=== PATIENT | male | born 1950 | race Caucasian/White ===

== ENCOUNTER 2022-03-13 10:52 | Inpatient (IN) | payer OTHER ==
[2022-03-13 16:07] LABS: #Lymphocytes 0.2 thou/uL (1.20-3.40); #Monocytes 0.1 thou/uL (0.11-0.59); %Basophils 0.2 % (0.0-1.0); %Eosinophils 0.5 % (0.0-10.0); %Lymphocytes 4.4 % (21.0-51.0); %Monocytes 1.9 % (0.0-10.0); Mean Corpuscular HGB CONC 32.6 g/dL (32.0-36.0); Mean Corpuscular Hemoglobin 32.5 pg (27.0-31.0); Mean Corpuscular Volume 99.7 fL (78.0-98.0); Mean Platelet Volume 7.4 fL (7.4-10.4); Platelet Count 181 thou/uL (130-400); RBC Distribution Width 13.1 % (11.5-14.5); White Blood Cell (WBC) Count 5.4 thou/uL (4.8-10.8)
[2022-03-13 16:35] LABS: ALT (SGPT) 16 U/L (8-55); AST (SGOT) 16 U/L (5-34); Albumin 3.9 g/dL (3.4-4.8); Alkaline Phosphatase 73 U/L (40-110); Anion Gap 15 mmol/L (10-20); BUN (Urea Nitrogen) 25 mg/dL (8.4-25.7); Bilirubin, Total 0.6 mg/dL (0.2-1.2); Calc. Creatinine Clearance 0 mL/min (70-130); Calcium 9.4 mg/dL (7.8-10.44); Carbon Dioxide 25 mmol/L (23-31); Chloride 105 mmol/L (98-107); Estimated GFR 82; Globulin 2.9 g/dL (2.4-3.5); Glucose 155 mg/dL (80-115); Potassium 3.9 mmol/L (3.5-5.1); Protein, Total 6.8 g/dL (5.8-8.1); Sodium 141 mmol/L (136-145)
[2022-03-13] MEDS ORDERED: hydrALAZINE 20 MG/ML VIAL ONE (20:57)
[2022-03-13 21:44] LABS: SARS-CoV-2 NAA Rapid Test Not Detected (NotDetected)
[2022-03-14 00:09] VITALS: BMI 14.5
[2022-03-14] MEDS ORDERED: Ondansetron PF 4 MG/2 ML Vial IVP PRN (01:10)
[2022-03-14] MEDS: methylPREDNISolone Sod Succ 40 MG VIAL IVP SCH ×3 (05:06→17:45)
[2022-03-14 06:23] LABS: #Eosinphils 0.1 thou/uL (0.0-0.7); #Lymphocytes 0.6 thou/uL (1.20-3.40); #Monocytes 0.6 thou/uL (0.11-0.59); %Basophils 0.1 % (0.0-1.0); %Eosinophils 0.7 % (0.0-10.0); %Lymphocytes 8.7 % (21.0-51.0); %Monocytes 8.2 % (0.0-10.0); %Neutrophils 82.3 % (42.0-75.0); Hemoglobin 12.1 g/dL (14.0-18.0); Mean Corpuscular HGB CONC 33.2 g/dL (32.0-36.0); Mean Corpuscular Hemoglobin 33.1 pg (27.0-31.0); Mean Corpuscular Volume 99.5 fL (78.0-98.0); Mean Platelet Volume 6.9 fL (7.4-10.4); Platelet Count 163 thou/uL (130-400); RBC Distribution Width 12.9 % (11.5-14.5); Red Blood Cell (RBC) Count 3.67 mill/uL (4.70-6.10); White Blood Cell (WBC) Count 7.3 thou/uL (4.8-10.8)
[2022-03-14] MEDS: Mometasone 200 MCG/Formoterol 5 MCG 120 PUFF INHALER INH SCH ×2 (06:23→18:20)
[2022-03-14] MEDS ORDERED: Mometasone/Formoterol 200/5 60 PUFF INH SCH (06:30)
[2022-03-14 06:39] LABS: Anion Gap 11 mmol/L (10-20); BUN (Urea Nitrogen) 27 mg/dL (8.4-25.7); Calc. Creatinine Clearance 51 mL/min (70-130); Carbon Dioxide 29 mmol/L (23-31); Chloride 105 mmol/L (98-107); Estimated GFR 96; Glucose 107 mg/dL (80-115); Potassium 3.8 mmol/L (3.5-5.1); Sodium 141 mmol/L (136-145)
[2022-03-14] MEDS: Ferrous Sulfate 325 MG TAB PO SCH ×2 (08:10→20:28)
[2022-03-14] MEDS: Amlodipine 5 MG TAB PO SCH (08:10)
[2022-03-14] MEDS: Losartan 25 MG TAB PO SCH (08:10)
[2022-03-14] MEDS: Enoxaparin Sodium 30 MG/0.3 ML SYRINGE SC SCH (08:10)
[2022-03-14] MEDS: guaiFENesin/DM ER PO SCH ×2 (09:19→20:28)
[2022-03-14] MEDS ORDERED: Acetylcysteine 20% 200 MG/ML 30 ML VIAL INH SCH (17:45)
[2022-03-14] MEDS: Acetylcysteine 20% 200 MG/ML 30 ML VIAL INH SCH (18:16)
[2022-03-14] MEDS ORDERED: hydrALAZINE 20 MG/ML VIAL SLOW IVP PRN (18:43)
[2022-03-14] MEDS: Mirtazapine 15 MG Soltab PO SCH (20:27)
[2022-03-15] MEDS: methylPREDNISolone Sod Succ 40 MG VIAL IVP SCH ×5 (00:47→23:39)
[2022-03-15] MEDS: Acetylcysteine 20% 200 MG/ML 30 ML VIAL INH SCH ×4 (01:39→18:13)
[2022-03-15 05:51] LABS: #Lymphocytes 0.2 thou/uL (1.20-3.40); #Monocytes 0.2 thou/uL (0.11-0.59); #Neutrophils 7.6 thou/uL (1.40-6.50); %Eosinophils 0.2 % (0.0-10.0); %Lymphocytes 1.9 % (21.0-51.0); %Monocytes 2.1 % (0.0-10.0); %Neutrophils 95.8 % (42.0-75.0); Mean Corpuscular Hemoglobin 32.9 pg (27.0-31.0); Mean Corpuscular Volume 99.6 fL (78.0-98.0); Platelet Count 164 thou/uL (130-400); RBC Distribution Width 12.9 % (11.5-14.5); Red Blood Cell (RBC) Count 3.95 mill/uL (4.70-6.10); White Blood Cell (WBC) Count 7.9 thou/uL (4.8-10.8)
[2022-03-15 06:08] LABS: Anion Gap 12 mmol/L (10-20); BUN (Urea Nitrogen) 26 mg/dL (8.4-25.7); Calc. Creatinine Clearance 42 mL/min (70-130); Calcium 9.4 mg/dL (7.8-10.44); Carbon Dioxide 29 mmol/L (23-31); Chloride 105 mmol/L (98-107); Estimated GFR 87; Glucose 154 mg/dL (80-115); Potassium 3.9 mmol/L (3.5-5.1); Sodium 142 mmol/L (136-145)
[2022-03-15] MEDS: Mometasone 200 MCG/Formoterol 5 MCG 120 PUFF INHALER INH SCH ×2 (07:39→18:15)
[2022-03-15] MEDS: Enoxaparin Sodium 30 MG/0.3 ML SYRINGE SC SCH (09:54)
[2022-03-15] MEDS: Amlodipine 5 MG TAB PO SCH (09:55)
[2022-03-15] MEDS: Losartan 25 MG TAB PO SCH (09:55)
[2022-03-15] MEDS: Ferrous Sulfate 325 MG TAB PO SCH ×2 (09:59→21:58)
[2022-03-15] MEDS: guaiFENesin/DM ER PO SCH ×2 (09:59→21:59)
[2022-03-15] MEDS ORDERED: guaiFENesin ER 600 MG TAB PO SCH (13:54)
[2022-03-15] MEDS ORDERED: Scopolamine 1.5 mg/72 hour Patch TD SCH (14:00)
[2022-03-15] MEDS: Mirtazapine 15 MG Soltab PO SCH (21:59)
[2022-03-16] MEDS: Acetylcysteine 20% 200 MG/ML 30 ML VIAL INH SCH ×2 (01:44→07:10)
[2022-03-16 06:01] LABS: #Basophils 0.1 thou/uL (0.0-0.2); #Lymphocytes 0.2 thou/uL (1.20-3.40); #Monocytes 0.2 thou/uL (0.11-0.59); #Neutrophils 7.3 thou/uL (1.40-6.50); %Basophils 0.8 % (0.0-1.0); %Eosinophils 0.4 % (0.0-10.0); %Lymphocytes 1.9 % (21.0-51.0); %Neutrophils 93.8 % (42.0-75.0); Hemoglobin 12.4 g/dL (14.0-18.0); Mean Corpuscular HGB CONC 33.3 g/dL (32.0-36.0); Mean Corpuscular Hemoglobin 33.6 pg (27.0-31.0); Mean Platelet Volume 7.2 fL (7.4-10.4); Platelet Count 159 thou/uL (130-400); Red Blood Cell (RBC) Count 3.69 mill/uL (4.70-6.10); White Blood Cell (WBC) Count 7.8 thou/uL (4.8-10.8)
[2022-03-16] MEDS: methylPREDNISolone Sod Succ 40 MG VIAL IVP SCH ×2 (06:02→11:47)
[2022-03-16 06:26] LABS: Anion Gap 11 mmol/L (10-20); BUN (Urea Nitrogen) 30 mg/dL (8.4-25.7); Calc. Creatinine Clearance 34 mL/min (70-130); Calcium 9.1 mg/dL (7.8-10.44); Carbon Dioxide 31 mmol/L (23-31); Chloride 104 mmol/L (98-107); Estimated GFR 67; Glucose 170 mg/dL (80-115); Potassium 3.8 mmol/L (3.5-5.1); Sodium 142 mmol/L (136-145)
[2022-03-16] MEDS: Mometasone 200 MCG/Formoterol 5 MCG 120 PUFF INHALER INH SCH (07:10)
[2022-03-16] MEDS: Ferrous Sulfate 325 MG TAB PO SCH (09:49)
[2022-03-16] MEDS: Enoxaparin Sodium 30 MG/0.3 ML SYRINGE SC SCH (09:49)
[2022-03-16] MEDS: Losartan 25 MG TAB PO SCH (10:54)
[2022-03-16] MEDS: Amlodipine 5 MG TAB PO SCH (10:55)
[2022-03-16] MEDS: guaiFENesin/DM ER PO SCH (10:55)
[2022-03-16 12:22] VITALS: BP 185/98; TEMP 98
== END 2022-03-16 13:52 | disposition home health service (06) | DRG 189 ==
LOC: ERS 10:52 → T4-B 21:05 → OBSVTOIN 03-14 09:24
PROVIDERS: ADMIT Internal Medicine; ATTEND Internal Medicine
PROC: 5A09357 Assistance with Respiratory Ventilation, Less than 24 Consecutive Hours, Continuous Positive Airway Pressure (ICD-10-PCS; principal; 2022-03-14)
DX: J96.21 Acute and chronic respiratory failure with hypoxia (principal); E43 Unspecified severe protein-calorie malnutrition; Z68.1 Body mass index [BMI] 19.9 or less, adult; J44.1 Chronic obstructive pulmonary disease with (acute) exacerbation; Z20.822 Contact with and (suspected) exposure to COVID-19; I10 Essential (primary) hypertension; F43.10 Post-traumatic stress disorder, unspecified; Z91.81 History of falling; Z85.038 Personal history of other malignant neoplasm of large intestine; Z92.21 Personal history of antineoplastic chemotherapy; Z79.899 Other long term (current) drug therapy; Z79.52 Long term (current) use of systemic steroids; Z90.49 Acquired absence of other specified parts of digestive tract; Z82.49 Family history of ischemic heart disease and other diseases of the circulatory system; Z80.8 Family history of malignant neoplasm of other organs or systems; Z87.891 Personal history of nicotine dependence; Z99.81 Dependence on supplemental oxygen; Z59.00 Homelessness unspecified
CPT/HCPCS: 36415; 71045; 80048; 80053; 83605; 83880; 84484; 85025; 93005; 94640; 96372; 96374; 96375; G0378; J0132; J0360; J1650; J1956; J2920; J7620

== ENCOUNTER 2022-03-18 00:38 | Inpatient (IN) | payer OTHER ==
[2022-03-18 06:02] LABS: #Eosinphils 0.1 thou/uL (0.0-0.7); #Lymphocytes 0.6 thou/uL (1.20-3.40); #Monocytes 0.6 thou/uL (0.11-0.59); #Neutrophils 7.3 thou/uL (1.40-6.50); %Basophils 0.3 % (0.0-1.0); %Monocytes 6.4 % (0.0-10.0); %Neutrophils 85.3 % (42.0-75.0); Hemoglobin 13.2 g/dL (14.0-18.0); Mean Corpuscular Hemoglobin 33.3 pg (27.0-31.0); Mean Platelet Volume 7.4 fL (7.4-10.4); Platelet Count 151 thou/uL (130-400); RBC Distribution Width 13.1 % (11.5-14.5); Red Blood Cell (RBC) Count 3.97 mill/uL (4.70-6.10); White Blood Cell (WBC) Count 8.5 thou/uL (4.8-10.8)
[2022-03-18 06:23] LABS: ALT (SGPT) 62 U/L (8-55); AST (SGOT) 22 U/L (5-34); Albumin 3.4 g/dL (3.4-4.8); Alkaline Phosphatase 69 U/L (40-110); Anion Gap 14 mmol/L (10-20); BUN (Urea Nitrogen) 33 mg/dL (8.4-25.7); Bilirubin, Total 0.9 mg/dL (0.2-1.2); Calc. Creatinine Clearance 0 mL/min (70-130); Calcium 9.1 mg/dL (7.8-10.44); Carbon Dioxide 30 mmol/L (23-31); Chloride 103 mmol/L (98-107); Estimated GFR 92; Globulin 2.6 g/dL (2.4-3.5); Glucose 107 mg/dL (80-115); Potassium 4.1 mmol/L (3.5-5.1); Sodium 143 mmol/L (136-145)
[2022-03-18] MEDS ORDERED: Morphine 4 MG/ML VIAL SLOW IVP PRN (06:30)
[2022-03-18] MEDS ORDERED: Dextrose 50% Abboject 50 ML SYRINGE SLOW IVP PRN (06:30)
[2022-03-18] MEDS ORDERED: Ondansetron ODT 4 MG TAB PO PRN (06:30)
[2022-03-18] MEDS ORDERED: Morphine 2 MG/ML VIAL SLOW IVP PRN ×2 (06:30→07:39)
[2022-03-18] MEDS ORDERED: TETANUS AND DIPHTHERIA TOX/PF 0.5 ML DISP.SYRIN IM ONE (06:30)
[2022-03-18] MEDS ORDERED: Ondansetron PF 4 MG/2 ML Vial IVP PRN (06:30)
[2022-03-18] MEDS ORDERED: hydrALAZINE 20 MG/ML VIAL SLOW IVP PRN (06:30)
[2022-03-18] MEDS ORDERED: Sodium Chloride 0.9% 1,000 ML IV SCH (06:30)
[2022-03-18] MEDS ORDERED: Dextrose 5% in Water 1,000 ML IV PRN (06:30)
[2022-03-18] MEDS ORDERED: Cyclobenzaprine 10 MG TAB PO PRN (06:35)
[2022-03-18] MEDS ORDERED: Ibuprofen 200 MG TAB PO PRN (06:35)
[2022-03-18 07:00] LABS: Magnesium 2.3 mg/dL (1.6-2.6); Phosphorus 2.6 mg/dL (2.3-4.7)
[2022-03-18] MEDS ORDERED: HYDROcodone/Acetaminophen 5/325 mg Tablet ONE (08:04)
[2022-03-18] MEDS: Famotidine 20 MG TAB PO SCH (11:01)
[2022-03-18] MEDS: Acetaminophen 325 MG TAB PO SCH ×3 (11:01→21:38)
[2022-03-18] MEDS: predniSONE 50 MG TAB PO SCH (11:01)
[2022-03-18 11:20] LABS: Bilirubin Negative (Negative); Blood, Urine Negative (Negative); Clarity Clear (Clear); Glucose, Urine (Dipstick) Normal (Negative); Ketone, Urine Negative (Negative); Leukocyte Negative Leu/uL (Negative); Nitrite Negative (Negative); Protein, Urine (Dipstick) Negative (Neg-Trace); Specific Gravity, Urine 1.021 (1.002-1.036); Urobilinogen Normal mg/dL (Less than 2)
[2022-03-18 11:36] VITALS: BMI 16.7
[2022-03-18] MEDS: traMADol HCl 50 MG TAB PO PRN ×2 (11:42→21:38)
[2022-03-18] MEDS ORDERED: Albuterol Sulfate 2.5 mg/3 ml Neb NEB PRN (20:04)
[2022-03-18] MEDS: Ferrous Sulfate 325 MG TAB PO SCH (21:39)
[2022-03-18] MEDS: guaiFENesin/DM ER PO SCH (21:39)
[2022-03-18] MEDS: Mirtazapine 15 MG Soltab PO SCH (21:45)
[2022-03-19] MEDS: Acetaminophen 325 MG TAB PO SCH ×4 (03:17→21:41)
[2022-03-19] MEDS: traMADol HCl 50 MG TAB PO PRN (03:18)
[2022-03-19 05:50] LABS: #Eosinphils 0.2 thou/uL (0.0-0.7); #Lymphocytes 0.6 thou/uL (1.20-3.40); #Monocytes 0.7 thou/uL (0.11-0.59); #Neutrophils 6.3 thou/uL (1.40-6.50); %Eosinophils 2.7 % (0.0-10.0); %Lymphocytes 7.2 % (21.0-51.0); %Monocytes 8.6 % (0.0-10.0); %Neutrophils 81.5 % (42.0-75.0); Hemoglobin 12.2 g/dL (14.0-18.0); Mean Corpuscular HGB CONC 32.7 g/dL (32.0-36.0); Mean Corpuscular Hemoglobin 33.1 pg (27.0-31.0); Mean Platelet Volume 7.2 fL (7.4-10.4); Platelet Count 137 thou/uL (130-400); RBC Distribution Width 12.7 % (11.5-14.5); Red Blood Cell (RBC) Count 3.68 mill/uL (4.70-6.10); White Blood Cell (WBC) Count 7.7 thou/uL (4.8-10.8)
[2022-03-19] MEDS ORDERED: Mometasone/Formoterol 200/5 60 PUFF INH SCH (06:30)
[2022-03-19] MEDS: Mometasone 200 MCG/Formoterol 5 MCG 120 PUFF INHALER INH SCH ×2 (07:09→20:22)
[2022-03-19] MEDS: Polyethylene Glycol 3350 17 GM Packet PO SCH (10:00)
[2022-03-19] MEDS: guaiFENesin/DM ER PO SCH ×2 (10:01→21:40)
[2022-03-19] MEDS: Losartan 25 MG TAB PO SCH (10:01)
[2022-03-19] MEDS: Senokot S 8.6-50 MG TAB PO SCH ×2 (10:01→21:41)
[2022-03-19] MEDS: predniSONE 50 MG TAB PO SCH (10:02)
[2022-03-19] MEDS: Enoxaparin Sodium 40 MG/0.4 ML SYRINGE SC SCH (10:02)
[2022-03-19] MEDS: Amlodipine 5 MG TAB PO SCH (10:02)
[2022-03-19] MEDS: Ferrous Sulfate 325 MG TAB PO SCH ×2 (10:02→21:42)
[2022-03-19] MEDS: Famotidine 20 MG TAB PO SCH (10:02)
[2022-03-19] MEDS: Mirtazapine 15 MG Soltab PO SCH (21:41)
[2022-03-20] MEDS: Acetaminophen 325 MG TAB PO SCH ×4 (02:19→20:46)
[2022-03-20] MEDS: Mometasone 200 MCG/Formoterol 5 MCG 120 PUFF INHALER INH SCH ×2 (07:25→18:30)
[2022-03-20] MEDS: Amlodipine 5 MG TAB PO SCH (08:12)
[2022-03-20] MEDS: Senokot S 8.6-50 MG TAB PO SCH ×2 (08:13→20:47)
[2022-03-20] MEDS: Losartan 25 MG TAB PO SCH (08:13)
[2022-03-20] MEDS: guaiFENesin/DM ER PO SCH ×2 (08:13→20:47)
[2022-03-20] MEDS: Famotidine 20 MG TAB PO SCH (08:15)
[2022-03-20] MEDS: Ferrous Sulfate 325 MG TAB PO SCH ×2 (08:16→20:47)
[2022-03-20] MEDS: Enoxaparin Sodium 40 MG/0.4 ML SYRINGE SC SCH (08:16)
[2022-03-20] MEDS: predniSONE 50 MG TAB PO SCH (08:16)
[2022-03-20] MEDS: Polyethylene Glycol 3350 17 GM Packet PO SCH (08:17)
[2022-03-20] MEDS ORDERED: Amlodipine 5 MG TAB PO SCH (11:29)
[2022-03-20] MEDS: traMADol HCl 50 MG TAB PO PRN (14:51)
[2022-03-20] MEDS: Mirtazapine 15 MG Soltab PO SCH (20:47)
[2022-03-21] MEDS: Acetaminophen 325 MG TAB PO SCH ×4 (02:38→21:00)
[2022-03-21] MEDS: Mometasone 200 MCG/Formoterol 5 MCG 120 PUFF INHALER INH SCH ×2 (06:48→19:05)
[2022-03-21] MEDS: Losartan 25 MG TAB PO SCH (10:29)
[2022-03-21] MEDS: predniSONE 50 MG TAB PO SCH (10:30)
[2022-03-21] MEDS: guaiFENesin/DM ER PO SCH ×2 (10:30→21:01)
[2022-03-21] MEDS: Amlodipine 5 MG TAB PO SCH (10:30)
[2022-03-21] MEDS: Famotidine 20 MG TAB PO SCH (10:30)
[2022-03-21] MEDS: Polyethylene Glycol 3350 17 GM Packet PO SCH (11:34)
[2022-03-21] MEDS: Ferrous Sulfate 325 MG TAB PO SCH ×2 (11:34→21:00)
[2022-03-21] MEDS: Enoxaparin Sodium 40 MG/0.4 ML SYRINGE SC SCH (11:34)
[2022-03-21] MEDS: Senokot S 8.6-50 MG TAB PO SCH ×2 (11:35→21:01)
[2022-03-21] MEDS: Mirtazapine 15 MG Soltab PO SCH (21:32)
[2022-03-22] MEDS: Acetaminophen 325 MG TAB PO SCH ×3 (01:44→13:21)
[2022-03-22] MEDS: Mometasone 200 MCG/Formoterol 5 MCG 120 PUFF INHALER INH SCH (07:16)
[2022-03-22] MEDS: Losartan 25 MG TAB PO SCH (08:19)
[2022-03-22] MEDS: Amlodipine 5 MG TAB PO SCH (08:19)
[2022-03-22] MEDS: predniSONE 50 MG TAB PO SCH (08:19)
[2022-03-22] MEDS: Senokot S 8.6-50 MG TAB PO SCH (08:19)
[2022-03-22] MEDS: guaiFENesin/DM ER PO SCH (08:19)
[2022-03-22] MEDS: Enoxaparin Sodium 40 MG/0.4 ML SYRINGE SC SCH (08:20)
[2022-03-22] MEDS: Ferrous Sulfate 325 MG TAB PO SCH (08:20)
[2022-03-22] MEDS: Polyethylene Glycol 3350 17 GM Packet PO SCH (08:20)
[2022-03-22] MEDS: Famotidine 20 MG TAB PO SCH (08:20)
[2022-03-22 12:53] VITALS: BP 174/87; TEMP 98.8
== END 2022-03-22 14:22 | DRG 535 ==
LOC: ERS 00:38 → SURG A 06:17
PROVIDERS: ADMIT Student in an Organized Health Care Education/Training Program; ATTEND Surgery
DX: S72.114A Nondisplaced fracture of greater trochanter of right femur, initial encounter for closed fracture (principal); E43 Unspecified severe protein-calorie malnutrition; Z68.1 Body mass index [BMI] 19.9 or less, adult; Z20.822 Contact with and (suspected) exposure to COVID-19; J44.9 Chronic obstructive pulmonary disease, unspecified; K21.9 Gastro-esophageal reflux disease without esophagitis; I10 Essential (primary) hypertension; E78.5 Hyperlipidemia, unspecified; F43.10 Post-traumatic stress disorder, unspecified; W19.XXXA Unspecified fall, initial encounter; Z99.81 Dependence on supplemental oxygen; Z90.49 Acquired absence of other specified parts of digestive tract; Z85.038 Personal history of other malignant neoplasm of large intestine; Z79.51 Long term (current) use of inhaled steroids; Z79.52 Long term (current) use of systemic steroids; Z79.899 Other long term (current) drug therapy; Z87.891 Personal history of nicotine dependence
CPT/HCPCS: 36415; 71045; 72192; 80053; 81003; 83735; 84100; 85025; 93005; 94640; 97139; G0390; J7512; J7620; U0003; U0005

== ENCOUNTER 2022-04-02 13:19 | Emergency (ER) | payer OTHER ==
[2022-04-02 14:29] LABS: Hemoglobin 13.2 g/dL (14.0-18.0); Red Blood Cell (RBC) Count 4.09 mill/uL (4.70-6.10); White Blood Cell (WBC) Count 5.9 thou/uL (4.8-10.8)
[2022-04-02 14:30] LABS: #Eosinphils 0.1 thou/uL (0.0-0.7); #Lymphocytes 0.4 thou/uL (1.20-3.40); #Monocytes 0.4 thou/uL (0.11-0.59); %Eosinophils 1.5 % (0.0-10.0); %Lymphocytes 6.1 % (21.0-51.0); %Neutrophils 85.4 % (42.0-75.0); Mean Corpuscular HGB CONC 32.3 g/dL (32.0-36.0); Mean Corpuscular Hemoglobin 32.2 pg (27.0-31.0); Mean Corpuscular Volume 99.8 fL (78.0-98.0); Mean Platelet Volume 6.6 fL (7.4-10.4); Platelet Count 179 thou/uL (130-400); RBC Distribution Width 13.3 % (11.5-14.5)
[2022-04-02 15:14] LABS: ALT (SGPT) 27 U/L (8-55); AST (SGOT) 16 U/L (5-34); Albumin 3.6 g/dL (3.4-4.8); Alkaline Phosphatase 125 U/L (40-110); Anion Gap 16 mmol/L (10-20); BUN (Urea Nitrogen) 20 mg/dL (8.4-25.7); Bilirubin, Total 0.8 mg/dL (0.2-1.2); Calc. Creatinine Clearance 0 mL/min (70-130); Calcium 9.4 mg/dL (7.8-10.44); Carbon Dioxide 28 mmol/L (23-31); Chloride 104 mmol/L (98-107); Estimated GFR 82; Globulin 2.8 g/dL (2.4-3.5); Glucose 169 mg/dL (80-115); Potassium 3.8 mmol/L (3.5-5.1); Protein, Total 6.4 g/dL (5.8-8.1); Sodium 144 mmol/L (136-145)
[2022-04-02] MEDS ORDERED: Morphine 4 MG/ML VIAL ONE (15:15)
== END 2022-04-02 18:49 | disposition home or self-care (01) ==
LOC: ERS 13:19
DX: S60.229A Contusion of unspecified hand, initial encounter (principal); I10 Essential (primary) hypertension; J44.9 Chronic obstructive pulmonary disease, unspecified; W18.39XA Other fall on same level, initial encounter; E78.5 Hyperlipidemia, unspecified
CPT/HCPCS: 36415; 72170; 80053; 85025; 96372; J2270

== ENCOUNTER 2022-04-05 10:38 | Emergency (ER) | payer MEDICARE, OTHER ==
[2022-04-05] MEDS ORDERED: Magnesium 2 GM/50 ML BAG (IN WATER) ONE (12:01)
[2022-04-05] MEDS ORDERED: methylPREDNISolone Sod Succ/PF 125 MG/2 ML VIAL ONE (12:01)
[2022-04-05 12:32] LABS: #Eosinphils 0.2 thou/uL (0.0-0.7); #Lymphocytes 0.4 thou/uL (1.20-3.40); #Monocytes 0.3 thou/uL (0.11-0.59); #Neutrophils 3.5 thou/uL (1.40-6.50); %Basophils 0.6 % (0.0-1.0); %Eosinophils 3.6 % (0.0-10.0); %Lymphocytes 8.8 % (21.0-51.0); %Monocytes 6.4 % (0.0-10.0); %Neutrophils 80.7 % (42.0-75.0); Hemoglobin 13.5 g/dL (14.0-18.0); Mean Corpuscular HGB CONC 32.9 g/dL (32.0-36.0); Mean Platelet Volume 6.6 fL (7.4-10.4); Platelet Count 200 thou/uL (130-400); RBC Distribution Width 13.1 % (11.5-14.5); White Blood Cell (WBC) Count 4.3 thou/uL (4.8-10.8)
[2022-04-05 12:59] LABS: ALT (SGPT) 20 U/L (8-55); AST (SGOT) 14 U/L (5-34); Albumin 3.9 g/dL (3.4-4.8); Alkaline Phosphatase 132 U/L (40-110); Anion Gap 14 mmol/L (10-20); BUN (Urea Nitrogen) 16 mg/dL (8.4-25.7); Bilirubin, Total 0.8 mg/dL (0.2-1.2); Calc. Creatinine Clearance 0 mL/min (70-130); Calcium 9.5 mg/dL (7.8-10.44); Carbon Dioxide 31 mmol/L (23-31); Chloride 102 mmol/L (98-107); Estimated GFR 79; Globulin 2.9 g/dL (2.4-3.5); Glucose 138 mg/dL (80-115); Magnesium 1.9 mg/dL (1.6-2.6); Potassium 3.5 mmol/L (3.5-5.1); Protein, Total 6.8 g/dL (5.8-8.1); Sodium 143 mmol/L (136-145)
== END 2022-04-05 14:36 | disposition home or self-care (01) ==
LOC: EEVIPCON 10:38 → ERS 10:38
DX: J44.1 Chronic obstructive pulmonary disease with (acute) exacerbation (principal); I10 Essential (primary) hypertension
CPT/HCPCS: 71045; 80053; 83735; 83880; 84484; 85025; 93005; 96365; 96375; J2930; J3475; J7620

== ENCOUNTER 2022-09-28 18:54 | Inpatient (IN) | payer MEDICARE, OTHER ==
[2022-09-28] MEDS ORDERED: methylPREDNISolone Sod Succ/PF 125 MG/2 ML VIAL ONE (19:05)
[2022-09-28] MEDS ORDERED: Ipratropium/Albuterol 3 ML NEB ONE (19:08)
[2022-09-28] MEDS ORDERED: Cefepime 2 GM VIAL ONE (19:32)
[2022-09-28 19:38] LABS: #Eosinphils 0.1 thou/uL (0.0-0.7); #Lymphocytes 0.6 thou/uL (1.20-3.40); #Monocytes 0.4 thou/uL (0.11-0.59); #Neutrophils 4.2 thou/uL (1.40-6.50); %Basophils 0.2 % (0.0-1.0); %Eosinophils 2.2 % (0.0-10.0); %Lymphocytes 11.9 % (21.0-51.0); %Monocytes 7.1 % (0.0-10.0); %Neutrophils 78.6 % (42.0-75.0); Hemoglobin 14.4 g/dL (14.0-18.0); Mean Corpuscular HGB CONC 33.6 g/dL (32.0-36.0); Mean Corpuscular Hemoglobin 33.2 pg (27.0-31.0); Mean Corpuscular Volume 98.8 fl (78.0-98.0); Platelet Count 203 10x3/uL (130-400); RBC Distribution Width 13.6 % (11.5-14.5); Red Blood Cell (RBC) Count 4.34 mill/uL (4.70-6.10); White Blood Cell (WBC) Count 5.3 10x3/uL (4.8-10.8)
[2022-09-28 20:09] LABS: Actual Bicarbonate (HCO3v) 33 mEq/L (22-28); Base Excess 4.4 mEq/L (-2.0 to +3.0); Calcium, Ionized (venous) 1.17 mmol/L (1.16-1.32); Chloride (VBG) 102 mmol/L (98-106); Hemoglobin (Hb) 14.4 g/dL (12.6-17.4); Sodium 144.6 mmol/L (133-146); pH (venous) 7.31 (7.32-7.43)
[2022-09-28] MEDS ORDERED: Albuterol 2.5 MG/0.5 ML NEB ONE (20:23)
[2022-09-28 20:26] LABS: Albumin 4.2 g/dL (3.4-4.8)
[2022-09-28 20:27] LABS: Chloride 103 mmol/L (98-107); Potassium 3.7 mmol/L (3.5-5.1); Sodium 145 mmol/L (136-145)
[2022-09-28 20:28] LABS: Calcium 9.6 mg/dL (7.8-10.44); Glucose 100 mg/dL (83-110)
[2022-09-28 20:29] LABS: Globulin 2.7 g/dL (2.4-3.5); Protein, Total 6.9 g/dL (5.8-8.1)
[2022-09-28 20:30] LABS: Anion Gap 17 mmol/L (10-20); Bilirubin, Total 0.4 mg/dL (0.2-1.2); Carbon Dioxide 29 mmol/L (23-31)
[2022-09-28 20:31] LABS: Alkaline Phosphatase 96 U/L (40-110)
[2022-09-28 20:32] LABS: Calc. Creatinine Clearance 0 mL/min (70-130); Estimated GFR 77
[2022-09-28 20:33] LABS: BUN (Urea Nitrogen) 21 mg/dL (8.4-25.7)
[2022-09-28 20:34] LABS: ALT (SGPT) 16 U/L (8-55); AST (SGOT) 17 U/L (5-34)
[2022-09-28] MEDS ORDERED: Ondansetron PF 4 MG/2 ML Vial IVP PRN (21:16)
[2022-09-28] MEDS ORDERED: Ipratropium/Albuterol 3 ML NEB EZPAP PRN (21:21)
[2022-09-28 21:29] LABS: SARS-CoV-2 NAA Rapid Test Not Detected (NotDetected)
[2022-09-28] MEDS: Ipratropium/Albuterol 3 ML NEB NEB SCH (22:53)
[2022-09-28 22:57] VITALS: BMI 15.4
[2022-09-28 23:13] LABS: Lactic Acid 3.6 mmol/L (0.5-2.2)
[2022-09-29] MEDS: Acetaminophen 325 MG TAB PO PRN ×2 (02:27→20:50)
[2022-09-29] MEDS: Ipratropium/Albuterol 3 ML NEB NEB SCH ×6 (02:36→22:21)
[2022-09-29 03:51] LABS: Amphetamine Not Detected (NotDetected); Barbiturates Screen Not Detected (NotDetected); Benzodiazepine Screen Not Detected (NotDetected); Cocaine Metabolite Screen Detected (NotDetected); Methadone Not Detected (NotDetected); Methamphetamine Not Detected (NotDetected); Opiate Screen Detected (NotDetected); Oxycodone Screen Not Detected (NotDetected); Phencyclidine (PCP) Not Detected (NotDetected); THC/Cannabinoid Screen Not Detected (NotDetected); Tricyclic Screen Not Detected (NotDetected)
[2022-09-29] MEDS: methylPREDNISolone Sod Succ/PF 125 MG/2 ML VIAL IVP SCH ×4 (05:18→23:49)
[2022-09-29] MEDS: Benzonatate 100 MG CAP PO PRN ×2 (05:19→20:50)
[2022-09-29 06:45] LABS: #Lymphocytes 0.2 thou/uL (1.20-3.40); #Monocytes 0.1 thou/uL (0.11-0.59); #Neutrophils 3.2 thou/uL (1.40-6.50); %Eosinophils 0.3 % (0.0-10.0); %Monocytes 1.6 % (0.0-10.0); %Neutrophils 93.2 % (42.0-75.0); Hemoglobin 11.3 g/dL (14.0-18.0); Mean Corpuscular HGB CONC 33.1 g/dL (32.0-36.0); Mean Corpuscular Hemoglobin 32.6 pg (27.0-31.0); Mean Corpuscular Volume 98.4 fl (78.0-98.0); Mean Platelet Volume 7.4 fL (7.4-10.4); Platelet Count 148 10x3/uL (130-400); RBC Distribution Width 13.4 % (11.5-14.5); Red Blood Cell (RBC) Count 3.46 mill/uL (4.70-6.10); White Blood Cell (WBC) Count 3.4 10x3/uL (4.8-10.8)
[2022-09-29 06:55] LABS: Anion Gap 12 mmol/L (10-20); BUN (Urea Nitrogen) 21 mg/dL (8.4-25.7); Calc. Creatinine Clearance 43 mL/min (70-130); Carbon Dioxide 27 mmol/L (23-31); Chloride 106 mmol/L (98-107); Estimated GFR 78; Glucose 160 mg/dL (83-110); Potassium 4.4 mmol/L (3.5-5.1); Sodium 141 mmol/L (136-145)
[2022-09-29] MEDS: Mometasone 200 MCG/Formoterol 5 MCG 120 PUFF INHALER INH SCH ×2 (07:44→18:46)
[2022-09-29] MEDS ORDERED: Losartan 25 MG TAB PO SCH (12:45)
[2022-09-29] MEDS ORDERED: Amlodipine 5 MG TAB PO SCH (12:45)
[2022-09-29] MEDS ORDERED: Mometasone 200 MCG/Formoterol 5 MCG 120 PUFF INHALER INH SCH (21:00)
[2022-09-29] MEDS ORDERED: hydrOXYzine 10 MG TAB PO SCH (23:30)
[2022-09-30] MEDS: Ipratropium/Albuterol 3 ML NEB NEB SCH ×6 (01:55→22:16)
[2022-09-30 05:34] LABS: #Lymphocytes 0.2 thou/uL (1.20-3.40); #Monocytes 0.1 thou/uL (0.11-0.59); #Neutrophils 7.2 thou/uL (1.40-6.50); %Eosinophils 0.2 % (0.0-10.0); %Lymphocytes 2.1 % (21.0-51.0); %Monocytes 1.8 % (0.0-10.0); %Neutrophils 95.9 % (42.0-75.0); Mean Corpuscular HGB CONC 32.9 g/dL (32.0-36.0); Mean Corpuscular Volume 97.5 fl (78.0-98.0); Mean Platelet Volume 7.6 fL (7.4-10.4); Platelet Count 151 10x3/uL (130-400); RBC Distribution Width 13.4 % (11.5-14.5); Red Blood Cell (RBC) Count 3.43 mill/uL (4.70-6.10); White Blood Cell (WBC) Count 7.5 10x3/uL (4.8-10.8)
[2022-09-30 05:50] LABS: Anion Gap 12 mmol/L (10-20); BUN (Urea Nitrogen) 24 mg/dL (8.4-25.7); Calc. Creatinine Clearance 40 mL/min (70-130); Calcium 9.3 mg/dL (7.8-10.44); Carbon Dioxide 28 mmol/L (23-31); Chloride 103 mmol/L (98-107); Estimated GFR 72; Glucose 160 mg/dL (83-110); Potassium 4.4 mmol/L (3.5-5.1); Sodium 139 mmol/L (136-145)
[2022-09-30] MEDS: Benzonatate 100 MG CAP PO PRN ×2 (05:54→20:21)
[2022-09-30] MEDS: Acetaminophen 325 MG TAB PO PRN ×3 (05:54→22:51)
[2022-09-30] MEDS: methylPREDNISolone Sod Succ/PF 125 MG/2 ML VIAL IVP SCH ×4 (05:55→23:53)
[2022-09-30] MEDS: Mometasone 200 MCG/Formoterol 5 MCG 120 PUFF INHALER INH SCH ×2 (06:50→18:51)
[2022-09-30] MEDS: Amlodipine 5 MG TAB PO SCH (08:10)
[2022-09-30] MEDS ORDERED: Losartan 25 MG TAB PO SCH ×2 (09:00)
[2022-10-01] MEDS: Ipratropium/Albuterol 3 ML NEB NEB SCH ×6 (02:15→21:56)
[2022-10-01] MEDS: methylPREDNISolone Sod Succ/PF 125 MG/2 ML VIAL IVP SCH ×4 (05:24→23:26)
[2022-10-01 06:33] LABS: #Lymphocytes 0.1 thou/uL (1.20-3.40); #Monocytes 0.2 thou/uL (0.11-0.59); #Neutrophils 7.2 thou/uL (1.40-6.50); %Eosinophils 0.3 % (0.0-10.0); %Lymphocytes 1.9 % (21.0-51.0); %Neutrophils 95.8 % (42.0-75.0); Hemoglobin 11.1 g/dL (14.0-18.0); Mean Corpuscular HGB CONC 33.7 g/dL (32.0-36.0); Mean Corpuscular Hemoglobin 32.8 pg (27.0-31.0); Mean Corpuscular Volume 97.5 fl (78.0-98.0); Mean Platelet Volume 7.8 fL (7.4-10.4); Platelet Count 162 10x3/uL (130-400); RBC Distribution Width 13.5 % (11.5-14.5); Red Blood Cell (RBC) Count 3.39 mill/uL (4.70-6.10); White Blood Cell (WBC) Count 7.5 10x3/uL (4.8-10.8)
[2022-10-01 06:54] LABS: Anion Gap 10 mmol/L (10-20); BUN (Urea Nitrogen) 34 mg/dL (8.4-25.7); Calc. Creatinine Clearance 42 mL/min (70-130); Calcium 8.8 mg/dL (7.8-10.44); Carbon Dioxide 30 mmol/L (23-31); Chloride 103 mmol/L (98-107); Estimated GFR 75; Glucose 144 mg/dL (83-110); Potassium 4.3 mmol/L (3.5-5.1); Sodium 139 mmol/L (136-145)
[2022-10-01] MEDS: Mometasone 200 MCG/Formoterol 5 MCG 120 PUFF INHALER INH SCH ×2 (07:06→19:17)
[2022-10-01] MEDS: Amlodipine 5 MG TAB PO SCH (09:28)
[2022-10-01] MEDS ORDERED: Losartan 25 MG TAB PO SCH (14:00)
[2022-10-01] MEDS: Benzonatate 100 MG CAP PO PRN (20:56)
[2022-10-01] MEDS: Acetaminophen 325 MG TAB PO PRN (21:02)
[2022-10-02] MEDS ORDERED: traZODone HCl 50 MG TAB PO SCH (00:15)
[2022-10-02] MEDS: Ipratropium/Albuterol 3 ML NEB NEB SCH ×3 (01:33→10:53)
[2022-10-02] MEDS: methylPREDNISolone Sod Succ/PF 125 MG/2 ML VIAL IVP SCH ×2 (05:47→12:39)
[2022-10-02] MEDS: Mometasone 200 MCG/Formoterol 5 MCG 120 PUFF INHALER INH SCH (06:59)
[2022-10-02 07:36] VITALS: BP 143/73; TEMP 98.1
[2022-10-02] MEDS ORDERED: Losartan 25 MG TAB PO SCH (09:00)
[2022-10-02] MEDS: Amlodipine 5 MG TAB PO SCH (09:05)
== END 2022-10-02 13:07 | disposition swing bed (61) | DRG 917 ==
LOC: ERS 18:54 → T4-B 21:04
PROVIDERS: ADMIT Internal Medicine; ATTEND Internal Medicine
DX: T40.5X1A Poisoning by cocaine, accidental (unintentional), initial encounter (principal); J96.21 Acute and chronic respiratory failure with hypoxia; J96.22 Acute and chronic respiratory failure with hypercapnia; J44.1 Chronic obstructive pulmonary disease with (acute) exacerbation; E44.0 Moderate protein-calorie malnutrition; Z68.1 Body mass index [BMI] 19.9 or less, adult; Z20.822 Contact with and (suspected) exposure to COVID-19; E78.5 Hyperlipidemia, unspecified; F14.10 Cocaine abuse, uncomplicated; I10 Essential (primary) hypertension; F41.9 Anxiety disorder, unspecified; F43.10 Post-traumatic stress disorder, unspecified; Z85.038 Personal history of other malignant neoplasm of large intestine; Z99.81 Dependence on supplemental oxygen; Z92.21 Personal history of antineoplastic chemotherapy; Z79.899 Other long term (current) drug therapy; Z79.52 Long term (current) use of systemic steroids; Z90.49 Acquired absence of other specified parts of digestive tract; Z80.9 Family history of malignant neoplasm, unspecified; Z87.891 Personal history of nicotine dependence; Z71.51 Drug abuse counseling and surveillance of drug abuser
CPT/HCPCS: 36415; 71045; 80048; 80053; 80306; 82805; 83605; 84484; 85025; 87040; 93005; 94640; 96365; 96367; 96375; J0692; J1650; J1956; J2930; J7611; J7620